=== PATIENT | male | born 1965 | race Caucasian/White ===

== ENCOUNTER 2016-10-12 05:25 | Emergency (ER) | payer BC ==
[~2016-10-12] VITALS: Ht 175.3 cm; Wt 113.0 kg
[2016-10-12 06:14] LABS: MCH 29.2 PG (29.0-34.0); MCHC 33.9 G/DL (30.0-36.0); MCV 86.1 FL (86-99); MEAN PLAT.VOLUME 9.8 uM^3 (9.0-12.4); PLATELET COUNT 235 K/uL (156-360); RBC DIS.WIDTH-SD 40.6 % (39-53); RED BLOOD COUNT 5.34 M/uL (4.00-5.50); WHITE BLOOD COUNT 9.5 K/uL (4.1-10.2)
[2016-10-12 06:24] LABS: CHLORIDE 104 mEq/L (99-109); POTASSIUM 4.2 mEq/L (3.7-5.4); SODIUM 139 mEq/L (136-147)
[2016-10-12 06:25] LABS: GLUCOSE 104 mg/dL (70-99)
[2016-10-12 06:27] LABS: ANION GAP 13 MEQ/L (2-14)
[2016-10-12 06:29] LABS: GFR ESTIMATE (CALCULATED) > 59 mL/min/
[2016-10-12 06:30] LABS: UREA NITROGEN (BUN) 17 mg/dL (9-23)
[2016-10-12 07:03] LABS: ADD MIUA? YES; BILIRUBIN NEGATIVE; BLOOD LARGE; COLOR YELLOW ((YELLOW)); GLUCOSE (STRIP) NEGATIVE; KETONES NEGATIVE; LEUKOCYTES NEGATIVE; NITRITE NEGATIVE; PROTEIN (STRIP) TRACE; SPECIFIC GRAVITY 1.029 (1.000-1.030); UROBILINOGEN 0.2 MG/DL (0.2-1.0)
[2016-10-12 07:27] LABS: BACTERIA NONE SEEN; CASTS NONE SEEN /LPF; CRYSTALS NONE SEEN; EPITHELIAL CELLS RARE; MUCUS NONE SEEN; PATHOLOGICAL CAST NONE SEEN; RED BLOOD CELLS TNTC /HPF (0-5); SMALL ROUND CELL NONE SEEN; YEAST-LIKE CELL NONE SEEN
[2016-10-12] MEDS ORDERED: ZOFRAN ODT4 MG PO (08:29)
[2016-10-12] MEDS ORDERED: FLOMAX0.4 MG PO (08:29)
[2016-10-12] MEDS ORDERED: PERCOCET 5/31 TABLET PO (08:29)
[2016-10-12] MEDS ORDERED: LEVAQUIN500 MG PO (08:29)
[2016-10-12 08:47] VITALS: BP 134/75
== END 2016-10-12 08:49 | disposition home or self-care (01) ==
LOC: EME 05:25
DX: N20.1 Calculus of ureter (principal); J20.9 Acute bronchitis, unspecified; Z87.442 Personal history of urinary calculi
CPT/HCPCS: 74176; 80048; 81003; 85027; 87086; 99281; 99285; J1885; J2405; J7030

== ENCOUNTER 2016-12-18 07:09 | Day surgery (SDC) | payer MEDICARE ==
[~2016-12-18] VITALS: Ht 175.3 cm; Wt 108.8 kg
[~2016-12-18 07:09] MED LIST: ACTIVATOR PO; FLOMAX0.4 MG PO; HYDRANGEA PO; LEVAQUIN500 MG PO; OSTEO BI-FLEX1 EAC3 PO; PERCOCET 5/31 TABLET PO; TESTOSTERONE PO; ZOFRAN ODT4 MG PO
[2016-12-18 08:13] VITALS: BP 133/82
[2016-12-18 11:03] VITALS: BP 169/85
[2016-12-18 12:03] VITALS: BP 141/81
[2016-12-18 12:57] VITALS: BP 156/81
== END 2016-12-18 13:10 | disposition home or self-care (01) ==
LOC: SDC 07:09
DX: N20.1 Calculus of ureter (principal); N35.9 Urethral stricture, unspecified; J45.909 Unspecified asthma, uncomplicated; K21.9 Gastro-esophageal reflux disease without esophagitis; Z68.36 Body mass index [BMI] 36.0-36.9, adult; Z80.3 Family history of malignant neoplasm of breast; Z81.1 Family history of alcohol abuse and dependence; Z83.3 Family history of diabetes mellitus; Z80.0 Family history of malignant neoplasm of digestive organs
CPT/HCPCS: 74000; 74420; C1758; C1876; J0330; J0690; J1100; J2405; J3010; J7050